=== PATIENT | female | born 2000 | race Caucasian/White ===

== ENCOUNTER 2022-03-08 19:43 | Emergency (ER) | payer SELFPAY ==
[~2022-03-08] VITALS: Ht 152 cm; Wt 63.4 kg
[2022-03-08 21:17] LABS: BILIRUBIN,URINE NEGATIVE (NEGATIVE); CLARITY,URINE CLEAR; COLOR,URINE YELLOW; GLUCOSE, URINE (UA) NEGATIVE (NEGATIVE); KETONES,URINE NEGATIVE (NEGATIVE); LEUKOCYTE ESTERASE ,URINE NEGATIVE (NEGATIVE); NITRITE,URINE NEGATIVE (NEGATIVE); PROTEIN,URINE NEGATIVE (NEGATIVE)
[2022-03-08 21:34] LABS: BACTERIA,URINE NEGATIVE /HPF; SQUAMOUS EPITHELIAL CELL,UR 0-2 /HPF; WBC,URINE 0-2 /HPF
--- NOTE | 2022-03-08 22:10 | ED GU-Female ---
General Chief Complaint: OB < 20 WEEKS Stated Complaint: FRONT/BACK CRAMPS, 7WKS Nursing Triage Note: PATIENT 7 WEEKS PREG. STATES STARTED PROGESTRONE VAGINALLY LAST NIGHT. STATES LOWER PELVIC CRAMPING FOR LAST TWO HOURS. STATES WORSENING IN FREQUENCY AND PAIN. PATIENT STATES SHE IS WORRIED SINCE SHE HAD A MISCARIAGE 5 MO AGO. PATIENT DENIES VAGINAL BLEEDING OR DISCHARGE. Source: patient Exam Limitations: no limitations History of Present Illness Date Seen by Provider: Mar 08, 2022 Time Seen by Provider: 21:09 Initial Comments This 21-year-old 2 para 0 young lady presents to the emergency room in early first trimester with lower back and pelvic cramping as well as pain in the right adnexal region. She is a patient of Dr. GALAVIZ who started progesterone vaginal capsules last night because of prior miscarriage. She reports her present symptoms feel similar to her prior miscarriage. LMP is January 18. She denies any vaginal bleeding or urinary symptoms. She has not yet had an ultrasound for this . Allergies and Home Medications Patient Home Medication List Home Medication List Reviewed: Yes Review of Systems Review of Systems Constitutional: no symptoms reported EENTM: no symptoms reported Respiratory: no symptoms reported Cardiovascular: no symptoms reported Gastrointestinal: no symptoms reported Genitourinary: see HPI : Yes Expected Date of Delivery: Oct 18, 2022 LMP: Dec 19, 2021 Musculoskeletal: no symptoms reported Skin: no symptoms reported Psychiatric/Neurological: No Symptoms Reported Endocrine: No Symptoms Reported Past Hadogux-Oimjjg-Irdmmc Hx Patient Social History Tobacco Use?: No Use of E-Cig and/or Vaping dev: No Substance use?: No Immunizations Up To Date Influenza Vaccine Up-to-Date: No; Not Current First/Initial COVID19 Vaccinat: N/A Second COVID19 Vaccination Xavier: N/A Third COVID19 Vaccination Date: N/A Past Medical History Surgeries: No Respiratory: No Cardiac: No Neurological: No : No Expected Date of Delivery: Oct 18, 2022 Last Menstrual Period: Jan 18, 2022 Genitourinary: No Gastrointestinal: No Musculoskeletal: No Endocrine: No HEENT: No Cancer: No Psychosocial: No Integumentary: No Physical Exam Vital Signs Vital Signs - First Documented 03/08/22 19:51 Temp 36.8 Pulse 114 Resp 20 B/P (MAP) 140/93 (109) Pulse Ox 99 O2 Delivery Room Air Capillary Refill : Less Than 3 Seconds Height, Weight, BMI Height: '" Weight: lbs. oz. kg; 27.00 BMI Method: General Appearance: WD/WN, no apparent distress HEENT: normal ENT inspection Cardiovascular: regular rate, rhythm, no edema, no murmur Respiratory: lungs clear, normal breath sounds, no respiratory distress Gastrointestinal: normal bowel sounds, soft, tenderness (Right adnexa) Extremities: normal inspection, no pedal edema Neurologic/Psychiatric: alert, normal mood/affect, oriented x 3 Skin: normal color, warm/dry Progress/Results/Core Measures Suspected Sepsis SIRS Temperature: Pulse: 114 Respiratory Rate: 20 Blood Pressure 140 /93 Mean: 109 Results/Orders Lab Results My Orders Vital Signs/I&O Capillary Refill : Less Than 3 Seconds Blood Pressure Mean: 109 Progress Note #1: Time: 22:14 Progress Note Phlebotomy has not been yet been successful at blood draw. Ultrasound is presently available in the hospital, so pelvic ultrasound will be obtained. Progress Note #2: Progress Note hCG was normal for gestational age and ultrasound showed a single live intrauterine gestation with no obvious abnormalities. Patient was discharged to outpatient follow-up. See discharge instructions for further discussion. Diagnostic Imaging Diagonstic Imaging: Ultrasound Plain Films/CT/US/NM/MRI: pelvis Comments Single live intrauterine gestation at approximately 7 weeks gestational age. Discussed with plastic technician and [employer] report reviewed. Departure Impression Primary Impression: Pelvic pain affecting Qualified Codes: O26.891 - Other specified related conditions, first trimester; R10.2 - Pelvic and perineal pain Disposition: 01 HOME, SELF-CARE Condition: Stable Departure-Patient Inst. Decision time for Depature: 00:11 Referrals: MAYLIN,LOCAL PHYSICIAN (PCP) Primary Care Physician AIDE GALAVIZ DO (Family) Primary Care Physician Patient Instructions: Stomach Pain in Early Add. Discharge Instructions: Your hormone levels and ultrasound are appropriate and normal for gestational age. heart rate was 148. Drink plenty of clear liquids to stay well-hydrated. You may take Tylenol (acetaminophen) up to 1000 mg every 6 hours as needed for pain and cramping. Benadryl (diphenhydramine) 25 to 50 mg every 6 hours may also be helpful in reducing cramping. Contact Dr. GALAVIZ's office in the morning for further instructions. Return to the ER if you have notably worsening symptoms or if new symptoms such as fever or vaginal bleeding develop. All discharge instructions reviewed with patient and/or family. Voiced understanding. Copy Copies To 1: AIDE GALAVIZ JOSHUA T MD Mar 08, 2022 22:10
[2022-03-08 22:24] LABS: BASOPHILS # (AUTO) 0.1 10^3/uL (0.0-0.1); BASOPHILS % (AUTO) 1 % (0-10); EOSINOPHILS # (AUTO) 0.4 10^3/uL (0.0-0.3); EOSINOPHILS % (AUTO) 3 % (0-10); HEMATOCRIT 39 % (35-52); HEMOGLOBIN 12.5 g/dL (11.5-16.0); LYMPHOCYTES # (AUTO) 2.9 10^3/uL (1.0-4.0); LYMPHOCYTES % (AUTO) 22 % (12-44); MEAN CORPUSCULAR HEMOGLOBIN 28 pg (25-34); MEAN CORPUSCULAR HGB CONC 32 g/dL (32-36); MEAN CORPUSCULAR VOLUME 86 fL (80-99); MEAN PLATELET VOLUME 8.8 fL (9.0-12.2); MONOCYTES % (AUTO) 8 % (0-12); NEUTROPHILS # (AUTO) 8.4 10^3/uL (1.8-7.8); NEUTROPHILS % (AUTO) 66 % (42-75); PLATELET COUNT 355 10^3/uL (130-400); WHITE BLOOD COUNT 12.7 10^3/uL (4.3-11.0)
[2022-03-09 00:19] VITALS: BP 140/93
--- NOTE | 2022-03-09 06:48 | Diagnostic Imaging Report ---
Indication: Right adnexal pain OB ultrasound Transabdominal and endovaginal scanning of the pelvis was performed There is a single living intrauterine . Embryo crown-rump length measures 10 mm corresponding to gestational age of 7 weeks 1 day. heart rate was 149 bpm. Yolk sac is present. Amniotic fluid volume is normal. Placenta location is indeterminate. Adnexa are unremarkable. IMPRESSION: Single living intrauterine with an estimated gestational age of 7 weeks 1 day. I agree with preliminary interpretation. Dictated by: Dictated on workstation # [id number]
== END 2022-03-09 00:22 | disposition home or self-care (01) ==
LOC: ER 19:47
DX: O26.891 Other specified pregnancy related conditions, first trimester (principal); R10.2 Pelvic and perineal pain; Z3A.01 Less than 8 weeks gestation of pregnancy; Z28.310 Unvaccinated for COVID-19
CPT/HCPCS: 36415; 76801; 76817; 81000; 84702; 85025; 99283

== ENCOUNTER 2022-05-04 10:24 | Emergency (ER) | payer OTHER ==
--- NOTE | 2022-05-04 10:33 | ED Dyspnea ---
General Stated Complaint: SOB History of Present Illness Date Seen by Provider: May 04, 2022 Time Seen by Provider: 10:27 Initial Comments 21-year-old female presents with shortness of breath. Patient reports she has a history of asthma. That over the last couple days she seemed to be more short of breath and is had to use her inhaler more. She is not currently wheezing. She ran out of her inhaler this morning. She reports she feels like she is been using it 10 times a day. She has a mild cough. No fevers chills nausea vomiting or other associated symptoms. Allergies and Home Medications Allergies Coded Allergies: No Known Drug Allergies (Unverified , 05/04/22) Patient Home Medication List Home Medication List Reviewed: Yes Review of Systems Review of Systems Constitutional: No chills, No fever Respiratory: cough, short of breath, wheezing Cardiovascular: No chest pain Gastrointestinal: no symptoms reported Genitourinary: no symptoms reported Musculoskeletal: no symptoms reported Skin: no symptoms reported Psychiatric/Neurological: No Symptoms Reported Endocrine: No Symptoms Reported Past Jcthccg-Jvjskf-Uswhyo Hx Immunizations Up To Date First/Initial COVID19 Vaccinat: N/A Second COVID19 Vaccination Xavier: N/A Third COVID19 Vaccination Date: N/A Past Medical History Surgeries: No Respiratory: No Cardiac: No Neurological: No Genitourinary: No Gastrointestinal: No Musculoskeletal: No Endocrine: No HEENT: No Cancer: No Psychosocial: No Integumentary: No Physical Exam Vital Signs Vital Signs - First Documented 05/04/22 10:36 Temp 36.5 Pulse 116 Resp 16 B/P (MAP) 131/76 (94) Pulse Ox 99 O2 Delivery Room Air Capillary Refill : Height, Weight, BMI Height: '" Weight: lbs. oz. kg; 27.00 BMI Method: General Appearance: No Apparent Distress, WD/WN HEENT: TMs Normal, Moist Mucous Membranes Neck: Full Range of Motion, Supple Respiratory: Lungs Clear, Normal Breath Sounds Cardiovascular: No Edema, Normal Peripheral Pulses, Tachycardia Gastrointestinal: Non Tender, Soft Extremity: Normal Capillary Refill, Normal Inspection, Normal Range of Motion Neurologic/Psychiatric: Alert, Oriented x3, No Motor/Sensory Deficits Skin: Normal Color, Warm/Dry Progress/Results/Core Measures Results/Orders Lab Results Laboratory Tests Test 05/04/22 10:39 Range/Units Influenza Type A (RT-PCR) Not Detected Not Detecte Influenza Type B (RT-PCR) Not Detected Not Detecte SARS-CoV-2 RNA (RT-PCR) Not Detected Not Detecte My Orders Orders - BHANU HOLT DO Albuterol/Ipra Inhalation Soln (Duoneb I (05/04/22 10:45) Dexamethasone Injection (Decadron Inje (05/04/22 10:45) Svn Small Volume Nebulizer (05/04/22 10:34) Influenza A And B By Pcr (05/04/22 10:34) Covid 19 Inhouse Test (05/04/22 10:34) Medications Given in ED Current Medications Medications Dose Ordered Sig/Henok Route Start Time Stop Time Status Last Admin Dose Admin Albuterol/ Ipratropium 3 ml ONCE ONCE INH 05/04/22 10:45 05/04/22 10:46 DC 05/04/22 10:39 3 ML Dexamethasone Sodium Phosphate 10 mg ONCE ONCE IM 05/04/22 10:45 05/04/22 10:46 DC 05/04/22 10:39 10 MG Vital Signs/I&O 05/04/22 10:36 Temp 36.5 Pulse 116 Resp 16 B/P (MAP) 131/76 (94) Pulse Ox 99 O2 Delivery Room Air Progress Progress Note : Progress Note Patient's symptoms improved following treatment. Patient's likely mild asthma exacerbation along with probable some early changes that she is 15 weeks . Patient is negative for COVID and influenza. I will prescribe her a Decadron 10 mg that she can take tomorrow along with refill her albuterol. I recommend she follow-up with her primary care provider to discuss inhaled steroids and other management. She is stable and discharged home Departure Impression Primary Impression: Asthma exacerbation Qualified Codes: J45.901 - Unspecified asthma with (acute) exacerbation Disposition: HOME, SELF-CARE Condition: Stable Departure-Patient Inst. Referrals: NO,LOCAL PHYSICIAN (PCP/Family) Primary Care Physician Patient Instructions: Asthma, Adult (DC), Asthma and Add. Discharge Instructions: Please follow-up with your primary care provider for long-term asthma and management. Please take the Decadron tomorrow night that is prescribed. You may use your inhaler every 4-6 hours as needed Scripts Dexamethasone (Dexamethasone) 4 Mg Tablet 10 MG PO ONCE, #3 TAB Prov: BHANU HOLT DO 05/04/22 Albuterol Sulfate (Ventolin Hfa) 90 Mcg Hfa.aer.ad 18 GM INH Q6H PRN for SHORTNESS OF BREATH, #1 EA Prov: BHANU HOLT DO 05/04/22 BHANU HOLT DO May 04, 2022 10:33
[2022-05-04] MEDS ORDERED: RT-ALBUTEROL/IPRATROPIUM 3 ML (DUONEB) VIAL INH ONE (10:45)
[2022-05-04] MEDS ORDERED: ALBU18HF2 INH (11:24)
[2022-05-04] MEDS ORDERED: DEXA4TAB PO (11:24)
[2022-05-04 11:25] VITALS: BP 131/76
== END 2022-05-04 11:27 | disposition home or self-care (01) ==
LOC: EDUNIT# 10:24 → ER FS 10:26
DX: O99.512 Diseases of the respiratory system complicating pregnancy, second trimester (principal); J45.901 Unspecified asthma with (acute) exacerbation; Z20.822 Contact with and (suspected) exposure to COVID-19; Z28.310 Unvaccinated for COVID-19; Z3A.15 15 weeks gestation of pregnancy
CPT/HCPCS: 87636; 94640

== ENCOUNTER 2022-05-06 07:23 | Emergency (ER) | payer OTHER ==
[~2022-05-06] VITALS: Ht 152.4 cm; Wt 63.5 kg
[~2022-05-06 07:23] MED LIST changes: -CEPH500T PO
--- NOTE | 2022-05-06 07:39 | ED General ---
General Stated Complaint: LOWER BACK PAIN PN, CRAMPING History of Present Illness Date Seen by Provider: May 06, 2022 Time Seen by Provider: 07:34 Initial Comments 21 yr F who is a primigravida, and 15 weeks , is here with c/o left sided flank pain which has been ongoing for the past couple of days but increasing in intensity today morning. Pain is 10/10, and is associated with nausea and vomiting. Patient has been taking medication for constipation for the past 3 days and today morning she had 1 episode of diarrhea. Patient states that she has not been drinking enough water over the past few weeks. Denies fever, chills, chest pain, shortness of breath, dysuria, polyuria. Allergies and Home Medications Allergies Coded Allergies: No Known Drug Allergies (Unverified , 05/04/22) Patient Home Medication List Home Medication List Reviewed: Yes Albuterol Sulfate (Ventolin Hfa) 90 Mcg Hfa.aer.ad, 18 GM INH Q6H PRN for SHORTNESS OF BREATH Prescribed by: BHANU HOLT on 05/04/22 112 Dexamethasone (Dexamethasone) 4 Mg Tablet, 10 MG PO ONCE Prescribed by: BHANU HOLT on 05/04/22 1124 Review of Systems Review of Systems Constitutional: no symptoms reported EENTM: no symptoms reported Respiratory: no symptoms reported Cardiovascular: no symptoms reported Gastrointestinal: nausea, vomiting Genitourinary: other : Yes Musculoskeletal: back pain Skin: no symptoms reported Psychiatric/Neurological: No Symptoms Reported Hematologic/Lymphatic: No Symptoms Reported Immunological/Allergic: no symptoms reported Past Oeujsvy-Ctqobz-Rcfgcr Hx Immunizations Up To Date First/Initial COVID19 Vaccinat: N/A Second COVID19 Vaccination Xavier: N/A Third COVID19 Vaccination Date: N/A Past Medical History Surgeries: No Respiratory: No Cardiac: No Neurological: No Genitourinary: No Gastrointestinal: No Musculoskeletal: No Endocrine: No HEENT: No Cancer: No Psychosocial: No Integumentary: No Physical Exam Vital Signs Vital Signs - First Documented 05/06/22 07:28 Temp 36.5 Pulse 117 Resp 20 B/P (MAP) 108/88 (95) O2 Delivery Room Air Capillary Refill : Height, Weight, BMI Height: '" Weight: lbs. oz. kg; 27.00 BMI Method: General Appearance: Mild Distress HEENT: PERRL/EOMI Neck: Full Range of Motion, Supple Respiratory: Chest Non Tender, Lungs Clear, Normal Breath Sounds Cardiovascular: Regular Rate, Rhythm Gastrointestinal: Normal Bowel Sounds, Non Tender, Soft Back: Normal Inspection, No Vertebral Tenderness, CVA Tenderness (L) Extremity: Normal Range of Motion Neurologic/Psychiatric: Alert, Oriented x3 Skin: Normal Color Progress/Results/Core Measures Suspected Sepsis SIRS Temperature: Pulse: Respiratory Rate: Laboratory Tests 05/06/22 07:51: White Blood Count 12.6H Blood Pressure / Mean: Laboratory Tests 05/06/22 07:51: Creatinine 0.41L, Platelet Count 327, Total Bilirubin 0.4 Results/Orders Lab Results Laboratory Tests Test 05/06/22 07:28 05/06/22 07:51 Range/Units Urine Color YELLOW Urine Clarity CLOUDY Urine pH 6.5 5-9 Urine Specific [place] 1.020 1.016-1.022 Urine Protein NEGATIVE NEGATIVE Urine Glucose (UA) NEGATIVE NEGATIVE Urine Ketones NEGATIVE NEGATIVE Urine Nitrite NEGATIVE NEGATIVE Urine Bilirubin NEGATIVE NEGATIVE Urine Urobilinogen 0.2 < = 1.0 MG/DL Urine Leukocyte Esterase TRACE H NEGATIVE Urine RBC (Auto) 3+ H NEGATIVE Urine RBC TNTC H /HPF Urine WBC NONE /HPF Urine Squamous Epithelial Cells 5-10 /HPF Urine Crystals NONE /LPF Urine Bacteria NEGATIVE /HPF Urine Casts NONE /LPF Urine Mucus NEGATIVE /LPF Urine Culture Indicated YES White Blood Count 12.6 H 4.3-11.0 10^3/uL Red Blood Count 4.43 3.80-5.11 10^6/uL Hemoglobin 12.8 11.5-16.0 g/dL Hematocrit 38 35-52 % Mean Corpuscular Volume 85 80-99 fL Mean Corpuscular Hemoglobin 29 25-34 pg Mean Corpuscular Hemoglobin Concent 34 32-36 g/dL Red Cell Distribution Width 13.9 10.0-14.5 % Platelet Count 327 130-400 10^3/uL Mean Platelet Volume 9.2 9.0-12.2 fL Immature Granulocyte % (Auto) 1 % Neutrophils (%) (Auto) 88 H 42-75 % Lymphocytes (%) (Auto) 10 L 12-44 % Monocytes (%) (Auto) 2 0-12 % Eosinophils (%) (Auto) 0 0-10 % Basophils (%) (Auto) 0 0-10 % Neutrophils # (Auto) 11.1 H 1.8-7.8 10^3/uL Lymphocytes # (Auto) 1.2 1.0-4.0 10^3/uL Monocytes # (Auto) 0.2 0.0-1.0 10^3/uL Eosinophils # (Auto) 0.0 0.0-0.3 10^3/uL Basophils # (Auto) 0.0 0.0-0.1 10^3/uL Immature Granulocyte # (Auto) 0.1 0.0-0.1 10^3/uL Sodium Level 133 L 135-145 MMOL/L Potassium Level 4.3 3.6-5.0 MMOL/L Chloride Level 101 98-107 MMOL/L Carbon Dioxide Level 17 L 21-32 MMOL/L Anion Gap 15 H 5-14 MMOL/L Blood Urea Nitrogen 5 L 7-18 MG/DL Creatinine 0.41 L 0.60-1.30 MG/DL Estimat Glomerular Filtration Rate 143 BUN/Creatinine Ratio 12 Glucose Level 116 H 70-105 MG/DL Calcium Level 9.3 8.5-10.1 MG/DL Corrected Calcium 9.1 8.5-10.1 MG/DL Magnesium Level 2.1 1.6-2.4 MG/DL Total Bilirubin 0.4 0.1-1.0 MG/DL Aspartate Amino Transf (AST/SGOT) 20 5-34 U/L Alanine Aminotransferase (ALT/SGPT) 41 0-55 U/L Alkaline Phosphatase 76 40-136 U/L Total Protein 7.5 6.4-8.2 GM/DL Albumin 4.2 3.2-4.5 GM/DL Human Chorionic Gonadotropin, Quant 37387 H <5 MIU/ML My Orders Orders - EMILY SR MD Cbc With Automated Diff (05/06/22 07:39) Comprehensive Metabolic Panel (05/06/22 07:39) Hcg,Quantitative (05/06/22 07:39) Magnesium (05/06/22 07:39) Ua Culture If Indicated (05/06/22 07:39) Urine Culture (05/06/22 07:28) Manual Differential (05/06/22 07:51) Ed Iv/Invasive Line Start (05/06/22 08:04) Ns Iv 1000 Ml (Sodium Chloride 0.9%) (05/06/22 08:15) Morphine Injection (Morphine Injection (05/06/22 08:04) Ondansetron Injection (Zofran Injectio (05/06/22 08:15) Ns Iv 1000 Ml (Sodium Chloride 0.9%) (05/06/22 08:12) Morphine Injection (Morphine Injection (05/06/22 08:11) Ondansetron Injection (Zofran Injectio (05/06/22 08:12) Medications Given in ED Current Medications Medications Dose Ordered Sig/Henok Route Start Time Stop Time Status Last Admin Dose Admin Ondansetron HCl 4 mg ONCE ONCE IVP 05/06/22 08:15 05/06/22 08:20 DC 05/06/22 08:14 4 MG Vital Signs/I&O 05/06/22 07:28 Temp 36.5 Pulse 117 Resp 20 B/P (MAP) 108/88 (95) O2 Delivery Room Air Capillary Refill : Progress Note : Progress Note 1. LEFT KIDNEY STONE/ POSSIBLE ASYMPTOMATIC UTI IN : -Ultrasound is not available today at [facility]. Will transfer to [place] to have an outpatient ultrasound to rule out kidney stone obstruction and/or hydronephrosis -Patient states she is unable to swallow pills and refuses oral medication that she has to swallow. Morphine 1 mg IV/Zofran 4 mg IV/NS IVF bolus given stat in ER -Patient likely has a kidney stone based on exam and labs. Labs show a positive leukocyte esterase and RBCs only in the UA which can indicate inflammation due to stones. WBC is borderline elevated at 12 but this is likely due to inflammation as well since patient is afebrile. -In case patient has a developing asymptomatic UTI in , will give a prescription for Keflex twice daily for 5 days. -Advised Tylenol liquid as needed for pain -Follow-up with OB in the next 3 to 5 days, and also follow-up with urology within the next 3 to 5 days. Call to schedule appointment. -Advised adequate hydration -The patient was seen in the ED, and treated appropriately to presentation at a specific point in time. Patient is informed that there is a possibility that disease and illness can evolve and change in acuity rapidly or slowly after patient is discharged from the ER. Precautionary advice given to the patient for immediate return to ER if symptoms worsen or do not resolve, and to seek emergency care sooner rather than later. Pt also advised on the importance of PCP follow up and compliance with management and follow up plan with PCP and/or specialist, as this is part of the management plan. Pt verbally expressed understanding. Diagnostic Imaging Diagonstic Imaging: Ultrasound Plain Films/CT/US/NM/MRI: abdomen, other Comments Pt to go to [place] for out-patient u/s directly from ER. Departure Impression Primary Impression: Left renal stone Additional Impression: Asymptomatic urinary finding Disposition: S[facility]-TRM HOSP Condition: Stable Departure-Patient Inst. Referrals: NO,LOCAL PHYSICIAN (PCP/Family) Primary Care Physician Patient Instructions: Kidney Stone Diet, Flank Pain ED, Renal Colic (DC), Kidney Stones (DC) Add. Discharge Instructions: - GO directly to [facility] for ultrasound - Keflex twice daily for 5 days. -Advised Tylenol liquid as needed for pain -Follow-up with OB in the next 3 to 5 days, and also follow-up with urology within the next 3 to 5 days. Call to schedule appointment. -Advised adequate hydration Scripts Cephalexin (Cephalexin) 500 Mg Tablet 500 MG PO BID for 5 Days, #10 TAB Prov: EMILY SR MD 05/06/22 EMILY SR MD May 06, 2022 07:38
[2022-05-06 07:43] LABS: BILIRUBIN,URINE NEGATIVE (NEGATIVE); COLOR,URINE YELLOW; GLUCOSE, URINE (UA) NEGATIVE (NEGATIVE); KETONES,URINE NEGATIVE (NEGATIVE); LEUKOCYTE ESTERASE ,URINE TRACE (NEGATIVE); NITRITE,URINE NEGATIVE (NEGATIVE); PH,URINE 6.5 (5-9); PROTEIN,URINE NEGATIVE (NEGATIVE)
[2022-05-06 07:45] LABS: BACTERIA,URINE NEGATIVE /HPF; CLARITY,URINE CLOUDY; RBC,URINE TNTC /HPF
[2022-05-06 07:53] LABS: BASOPHILS % (AUTO) 0 % (0-10); EOSINOPHILS % (AUTO) 0 % (0-10); HEMATOCRIT 38 % (35-52); HEMOGLOBIN 12.8 g/dL (11.5-16.0); LYMPHOCYTES # (AUTO) 1.2 10^3/uL (1.0-4.0); LYMPHOCYTES % (AUTO) 10 % (12-44); MEAN CORPUSCULAR HEMOGLOBIN 29 pg (25-34); MEAN CORPUSCULAR HGB CONC 34 g/dL (32-36); MEAN CORPUSCULAR VOLUME 85 fL (80-99); MEAN PLATELET VOLUME 9.2 fL (9.0-12.2); MONOCYTES # (AUTO) 0.2 10^3/uL (0.0-1.0); MONOCYTES % (AUTO) 2 % (0-12); NEUTROPHILS # (AUTO) 11.1 10^3/uL (1.8-7.8); NEUTROPHILS % (AUTO) 88 % (42-75); PLATELET COUNT 327 10^3/uL (130-400); WHITE BLOOD COUNT 12.6 10^3/uL (4.3-11.0)
[2022-05-06] MEDS ORDERED: morphine INJ 10 MG/ML 1ML (SYR OR VIAL) IVP STA ×3 (08:04→13:19)
[2022-05-06] MEDS ORDERED: morphine INJ 10 MG/ML 1ML (SYR OR VIAL) ONE ×2 (08:11→12:43)
[2022-05-06] MEDS ORDERED: NS IV 1000 ML 1,000 ML ONE (08:12)
[2022-05-06] MEDS ORDERED: ONDANSETRON 4 MG/2 ML (SDV) Z0FRAN ONE (08:12)
[2022-05-06] MEDS ORDERED: NS IV 1000 ML 1,000 ML IV SCH (08:15)
[2022-05-06] MEDS ORDERED: ONDANSETRON 4 MG/2 ML (SDV) Z0FRAN IVP ONE ×2 (08:15→13:00)
[2022-05-06 08:21] LABS: BILIRUBIN,TOTAL 0.4 MG/DL (0.1-1.0); CALCIUM 9.3 MG/DL (8.5-10.1); CREATININE SERUM 0.41 MG/DL (0.60-1.30); MAGNESIUM 2.1 MG/DL (1.6-2.4); POTASSIUM 4.3 MMOL/L (3.6-5.0)
[2022-05-06 08:22] LABS: ALBUMIN 4.2 GM/DL (3.2-4.5); TOTAL PROTEIN 7.5 GM/DL (6.4-8.2)
[2022-05-06] MEDS ORDERED: CEPH500T PO (09:17)
[2022-05-06 10:35] LABS: LYMPHOCYTES % (MANUAL) 9 %; MONOCYTES % (MANUAL) 2 %; NEUTROPHILS % (MANUAL) 89 %
[2022-05-06] MEDS ORDERED: fentaNYL INJ 100 MCG/2 ML AMP IVP ONE (12:45)
--- NOTE | 2022-05-06 14:22 | Diagnostic Imaging Report ---
INDICATION: Abdominal pain. Hematuria. FINDINGS: No radiopaque renal calculi are identified. No suspicious calcific opacities along the expected course of either ureter. Gravid uterus is noted. The bowel gas pattern is unremarkable. No abnormal fecal loading. IMPRESSION: No radiopaque urinary tract calculus disease can be identified. Dictated by: Dictated on workstation # [id number]
[2022-05-06] MEDS ORDERED: HYDROmorphone 2 MG/ML VIAL (DILAUDID) IVP ONE (15:00)
[2022-05-06] MEDS ORDERED: RT-ALBUTEROL HFA 8.5 GM INHALER IH STA (16:38)
[2022-05-06 16:55] VITALS: BP 105/89
== END 2022-05-06 14:20 | disposition short-term general hospital (02) ==
LOC: EDUNIT# 07:23 → ER FS 07:25 → ER 14:20
DX: O26.832 Pregnancy related renal disease, second trimester (principal); N20.0 Calculus of kidney; R82.90 Unspecified abnormal findings in urine; Z28.310 Unvaccinated for COVID-19; Z3A.15 15 weeks gestation of pregnancy
CPT/HCPCS: 36415; 74018; 80053; 81000; 83735; 84702; 85007; 85025; 85027; 87088; 99282

== ENCOUNTER → 2022-05-06 | Outpatient (CLI) | payer OTHER ==
[~2022-05-06] MED LIST: ALBU18HF2 INH; CEPH500T PO; DEXA4TAB PO
--- NOTE | 2022-05-06 13:17 | Diagnostic Imaging Report ---
PROCEDURE: US Renal Bilateral. TECHNIQUE: Multiple real-time grayscale images were obtained over the kidneys in various projections bilaterally. INDICATION: Left-sided flank pain. 15 weeks . FINDINGS: The right kidney measures 10.1 symmetric in length and left measures 11.67 m in length. The right kidney demonstrates moderate dilation of the renal pelvis and mild prominence of the renal calyces. The left kidney demonstrates a very slight prominence of left renal pelvis with no findings of calyceal dilatation. There are no findings of a renal stone or intrarenal mass. There is no perinephric fluid. The maternal bladder is decompressed. IMPRESSION: 1. Moderate right and mild left prominence of the renal pelvis likely related to current . There is no significant calyceal dilatation to suggest hydronephrosis. There is no intrarenal calculus evident. Urinary bladder is nondistended. Dictated by: Dictated on workstation # [id number]
--- NOTE | 2022-05-06 13:35 | Diagnostic Imaging Report ---
Indication: Maternal flank pain. FINDINGS: There is a Blair gestation currently in breech presentation. The placenta is posterior. Amniotic fluid volume appeared unremarkable. heart rate 139 bpm. Nondilated cervix measured 4 cm. There is no abruption or previa. IMPRESSION: Blair viable IUP measures 15 weeks 5 days with no pathological finding. Dictated by: Dictated on workstation # [id number]
== END ==
LOC: RAD 10:20
PROVIDERS: ATTEND Specialist
DX: Z34.92 Encounter for supervision of normal pregnancy, unspecified, second trimester (principal); N28.89 Other specified disorders of kidney and ureter; Z3A.15 15 weeks gestation of pregnancy
CPT/HCPCS: 76770; 76815

== ENCOUNTER → 2022-06-14 | Outpatient (CLI) | payer OTHER ==
[~2022-06-14] MED LIST changes: +CEPH500T PO
--- NOTE | 2022-06-14 16:42 | Diagnostic Imaging Report ---
INDICATION: TECHNIQUE: Multiple real-time grayscale images were obtained over the gravid uterus. COMPARISON: None FINDINGS: Biometrical measurements are as follows: Biparietal 5.23 cm, age 22 weeks 0 days. Head circumference 19.18 cm, age 21 weeks 4 days. Abdominal circumference 16.40 cm, age 21 weeks 4 days. Femur length 3.58 cm, age 21 weeks 3 days. Sonographic estimate age: 21 weeks 5 days. Sonographic estimated date of delivery: 10/20/2022. Estimated Weight: 423 gm (+/- 62 gm). LMP percentile: 68%. heart rate: 146 beats per minute. number: 1 of 1. A single live intrauterine in cephalic presentation. The largest vertical amniotic fluid pocket measures 10.1 cm. Placenta is posterior and within normal limits. heart rate is 146 BPM. The cervix is normal with a length of 4.7 cm. No placenta previa. The kidneys, stomach, bladder, four-chamber heart, cord insertion, bladder, spine, lateral ventricle, nasal profile, nose/lips, diaphragm are visualized and normal. The CSP and outflow tracts are not well seen due to positioning. Male gender. IMPRESSION: Single live intrauterine measuring at 21 weeks and 5 days which is within normal limits with gestational age. No abnormality identified. The outflow tracts and BUSINESS INSTRUCTOR are not well seen due to positioning. Dictated by: Dictated on workstation # [id number]
== END ==
LOC: RAD 09:09
PROVIDERS: ATTEND Nurse Practitioner Women's Health
DX: Z34.02 Encounter for supervision of normal first pregnancy, second trimester (principal); Z3A.21 21 weeks gestation of pregnancy
CPT/HCPCS: 76805

== ENCOUNTER 2022-10-24 06:00 | Inpatient (IN) | payer OTHER, MEDICAID ==
[2022-10-24] VITALS (59 sets, daily range): BP systolic 101–166; BP diastolic 54–99
[~2022-10-24] VITALS: Ht 152.4 cm; Wt 76.4 kg
[2022-10-24] MEDS ORDERED: LIDOCAINE/EPI 2% 1:200,00 (XYLOCAINE) 20 ML VIAL INJ PRN ×3 (06:15→08:30)
[2022-10-24 06:51] LABS: BILIRUBIN,URINE NEGATIVE (NEGATIVE); CLARITY,URINE SL CLOUDY; COLOR,URINE YELLOW; GLUCOSE, URINE (UA) NEGATIVE (NEGATIVE); KETONES,URINE NEGATIVE (NEGATIVE); LEUKOCYTE ESTERASE ,URINE TRACE (NEGATIVE); NITRITE,URINE NEGATIVE (NEGATIVE); PROTEIN,URINE NEGATIVE (NEGATIVE)
[2022-10-24 06:52] LABS: BASOPHILS % (AUTO) 0 % (0-10); EOSINOPHILS # (AUTO) 0.6 10^3/uL (0.0-0.3); EOSINOPHILS % (AUTO) 5 % (0-10); HEMATOCRIT 33 % (35-52); HEMOGLOBIN 10.6 g/dL (11.5-16.0); LYMPHOCYTES % (AUTO) 18 % (12-44); MEAN CORPUSCULAR HEMOGLOBIN 27 pg (25-34); MEAN CORPUSCULAR HGB CONC 32 g/dL (32-36); MEAN CORPUSCULAR VOLUME 84 fL (80-99); MEAN PLATELET VOLUME 9.8 fL (9.0-12.2); MONOCYTES # (AUTO) 0.9 10^3/uL (0.0-1.0); MONOCYTES % (AUTO) 8 % (0-12); NEUTROPHILS # (AUTO) 7.5 10^3/uL (1.8-7.8); NEUTROPHILS % (AUTO) 68 % (42-75); PLATELET COUNT 303 10^3/uL (130-400); WHITE BLOOD COUNT 11.1 10^3/uL (4.3-11.0)
[2022-10-24 06:59] LABS: BACTERIA,URINE FEW /HPF; WBC,URINE RARE /HPF
[2022-10-24] MEDS: D5 LR IV SOLUTION 1,000 ML IV SCH ×3 (07:02→19:50)
[2022-10-24] MEDS ORDERED: MONT-47 PO (07:33)
--- NOTE | 2022-10-24 07:33 | History & Physical-OB ---
OB - Chief Complaint & HPI Date/Time Date of Admission: Date of Admission: Oct 24, 2022 at 06:00 Date seen by a Provider: Oct 24, 2022 Time Seen by a Provider: 07:30 Chief Complaint/History OB-Reason for Admission/Chief: Induction of Labor Hx : 2 Hx Para: 0 Expected Date of Delivery: Oct 25, 2022 Gestational Age in Weeks: 39 Gestational Age in Days: 6 Indication for induction: maternal discomfort Admission Nurse Assessment Rev: Yes History of Labs O pos Antibody neg RI RPR NR HBsAg NR HIV NR GC neg GBS neg Allergies and Home Medications Allergies Coded Allergies: No Known Drug Allergies (Unverified , 05/04/22) Patient Home Medication List Home Medication List Reviewed: Yes Albuterol Sulfate (Ventolin Hfa) 90 Mcg Hfa.aer.ad, 18 GM INH Q6H PRN for SHORTNESS OF BREATH Prescribed by: BHANU HOLT on 05/04/22 1124 Cephalexin (Cephalexin) 500 Mg Tablet, 500 MG PO BID Prescribed by: EMILY SR MD on 05/06/22 0917 Dexamethasone (Dexamethasone) 4 Mg Tablet, 10 MG PO ONCE Prescribed by: BHANU HOLT on 05/04/22 1124 OB - History Hx of Present Care: Yes Ultrasounds: Normal mid trimester US Obstetrical Complications: None Medical Complications: None Patient Past Medical History nc Immunizations First/Initial COVID19 Vaccine: N/A Second COVID19 Vaccination: N/A Third COVID19 Vaccination Date: N/A OB - Admission Exam Physical Exam HEENT: NCAT Heart: Rhythm Normal Lungs: Clear Abdomen: Gravid Extremities: Normal Reflexes: Normal Cervical Dilatation: 2cm Effacement: 75% Station: -1 Membranes: Intact Heart Rate: 130's Accelerations: Accelerations Present Decelerations: No Decelerations Short Term Variability: Present Psychological Stress Evaluator Variability: Average (6-25) Contractions on Admission: 6-10 Minutes Apart Intensity: Mild Labs Laboratory Tests Test 10/24/22 06:20 Range/Units White Blood Count 11.1 H 4.3-11.0 10^3/uL Red Blood Count 3.95 3.80-5.11 10^6/uL Hemoglobin 10.6 L 11.5-16.0 g/dL Hematocrit 33 L 35-52 % Mean Corpuscular Volume 84 80-99 fL Mean Corpuscular Hemoglobin 27 25-34 pg Mean Corpuscular Hemoglobin Concent 32 32-36 g/dL Red Cell Distribution Width 13.5 10.0-14.5 % Platelet Count 303 130-400 10^3/uL Mean Platelet Volume 9.8 9.0-12.2 fL Immature Granulocyte % (Auto) 1 % Neutrophils (%) (Auto) 68 42-75 % Lymphocytes (%) (Auto) 18 12-44 % Monocytes (%) (Auto) 8 0-12 % Eosinophils (%) (Auto) 5 0-10 % Basophils (%) (Auto) 0 0-10 % Neutrophils # (Auto) 7.5 1.8-7.8 10^3/uL Lymphocytes # (Auto) 2.0 1.0-4.0 10^3/uL Monocytes # (Auto) 0.9 0.0-1.0 10^3/uL Eosinophils # (Auto) 0.6 H 0.0-0.3 10^3/uL Basophils # (Auto) 0.0 0.0-0.1 10^3/uL Immature Granulocyte # (Auto) 0.1 0.0-0.1 10^3/uL Urine Color YELLOW Urine Clarity SL CLOUDY Urine pH 6.0 5-9 Urine Specific [place] 1.010 L 1.016-1.022 Urine Protein NEGATIVE NEGATIVE Urine Glucose (UA) NEGATIVE NEGATIVE Urine Ketones NEGATIVE NEGATIVE Urine Nitrite NEGATIVE NEGATIVE Urine Bilirubin NEGATIVE NEGATIVE Urine Urobilinogen 0.2 < = 1.0 MG/DL Urine Leukocyte Esterase TRACE H NEGATIVE Urine RBC (Auto) NEGATIVE NEGATIVE Urine RBC NONE /HPF Urine WBC RARE /HPF Urine Squamous Epithelial Cells 5-10 /HPF Urine Crystals NONE /LPF Urine Bacteria FEW H /HPF Urine Casts NONE /LPF Urine Mucus NEGATIVE /LPF Urine Culture Indicated NO OB - Assessment/Plan/Diagnosis Assessment Assessment: induction of labor Admission Dx 22 yo @ 39 weeks IOL GBS neg Admission Status: Inpatient Order (span 2 midnights) Reason for Inpatient Admission: IOL at 39 weeks Plan Plan: Induction Induction Method: AIDE ATKINS DO Oct 24, 2022 07:33
[2022-10-24] MEDS ORDERED: OXYTOCIN PRE-MIX DRIP 500 ML IV SCH (08:30)
[2022-10-24] MEDS ORDERED: fentaNYL 2 mcg/ml BUPIVA 0.125 100 ML ONE (11:17)
[2022-10-24] MEDS ORDERED: fentaNYL INJ 100 MCG/2 ML AMP ONE ×3 (11:22→21:59)
[2022-10-24] MEDS ORDERED: BUPIVACAINE 0.25% 10 ML (SENSORCAINE) VIAL ONE (11:22)
[2022-10-24] MEDS ORDERED: CATHETER FLUSH 10 ML SYR IV PRN (12:15)
[2022-10-24] MEDS ORDERED: fentaNYL 2 mcg/ml BUPIVA 0.125 100 ML EPI SCH (12:15)
[2022-10-24] MEDS ORDERED: LACTATED RINGERS 1,000 ML IV ONE (12:15)
[2022-10-24] MEDS ORDERED: NALOXONE 0.4 MG/ML 1 ML (NARCAN) VIAL IV PRN ×2 (12:15→20:45)
[2022-10-24] MEDS ORDERED: ONDANSETRON 4 MG/2 ML (SDV) Z0FRAN IVP PRN (20:45)
[2022-10-24] MEDS ORDERED: TETANUS,DIPTH,PERTUSS P/F (BOOSTRIX) 0.5 ML VIAL IM SCH (20:45)
[2022-10-24] MEDS ORDERED: KETOROLAC 30 MG/ML VIAL IV SCH (20:45)
[2022-10-24] MEDS ORDERED: MEASLES,MUMPS,RUBELLA 1 EA INJ SC SCH (20:45)
--- NOTE | 2022-10-24 20:50 | Progress Note ---
Standard Progress Note Progress Notes/Assess & Plan Date Seen by a Provider: Oct 24, 2022 Time Seen by a Provider: 20:35 Progress/Assessment & Plan Came in for further assessment on patient. My last evaluation was at 1400 where patient was found to be 3-4 cm. She has had a few variable decels but nothing reoccuring. Slow rise in temp noted but afebrile. She has been titrated to a max dose of 14 mu pitocin and has maintained an adequate contraction pattern through the past 6 hours. However on reassessment at this time no cervical change was made. Patient counciled about arrest of dilatation and potential causes. We discussed ongoing labor vs proceeding with delivery. Risk of both reviewed, patient agreed that would be the best approach to continue with at this point. All of her questions and family questions were answered to their satisfaction and OR crew and anesthesia was notified to present to procedure. AIDE GALAVIZ DO Oct 24, 2022 20:50
--- NOTE | 2022-10-24 20:51 | Discharge Inst-Women's Service ---
Discharge Inst-Women's Serv Depart Medication/Instructions New, Converted or Re-Newed RX: Transmitted to Pharmacy Final Diagnosis POD 2 PLTCS Problems Reviewed?: Yes Consults/Follow Up Additional Follow Up: Yes Orders/Referrals Dr. Cervantes in 7-10 days and in 6 weeks Activity Activity: Activity as Tolerated Driving Instructions: No Driving for 1 Week NO SMOKING: NO SMOKING Nothing Inside Vagina: No Douching, No [place], No Tampons Diet Discharge Diet: No Restrictions Symptoms to Report to : Bleeding Excessive, Pain Increased, Fever Over 101 Degrees F, Vaginal Bleeding Increase, Questions/Concerns For Any Problems or Questions: Contact Your Physician Skin/Wound Care Infection Signs and Symptoms: Increased Redness, Foul Odor of Wound, Increased Drainage, Skin Itchy or Has a Rash, Increased Swelling, Temperature Above 101 F Operative Area Clean and Dry: Keep Incision Clean/Dry Stitches/[place]/Dermabond: Dermabond, Care of Stitches Bathing Instructions: AIDE Dale DO Oct 24, 2022 20:51
[2022-10-24] MEDS ORDERED: FERR-74 PO (20:53)
[2022-10-24] MEDS ORDERED: CITRIC ACID/SOB CIT (BICITRA) 30 ML UDC ONE (20:53)
[2022-10-24] MEDS ORDERED: ACHD5005 PO (20:53)
[2022-10-24] MEDS ORDERED: PREN1TAB19 PO (20:53)
[2022-10-24] MEDS ORDERED: FAMOTIDINE 20MG/2ML IV (PEPCID) ONE (20:53)
[2022-10-24] MEDS ORDERED: METOCLOPRAMIDE INJ 10 MG/2 ML (REGLAN) ONE (20:53)
[2022-10-24] MEDS ORDERED: DOCU100C37 PO (20:53)
[2022-10-24] MEDS ORDERED: IBUP-844 PO (20:53)
[2022-10-24] MEDS ORDERED: FAMOTIDINE 20MG/2ML IV (PEPCID) IV ONE (21:00)
[2022-10-24] MEDS ORDERED: LACTATED RINGERS 1,000 ML IV PRN ×2 (21:00)
[2022-10-24] MEDS ORDERED: CITRIC ACID/SOB CIT (BICITRA) 30 ML UDC PO ONE (21:00)
[2022-10-24] MEDS ORDERED: METOCLOPRAMIDE INJ 10 MG/2 ML (REGLAN) IV ONE (21:00)
[2022-10-24] MEDS ORDERED: LIDOCAINE PF 2% 5 ML (XYLOCAINE) VIAL ONE (21:08)
[2022-10-24] MEDS ORDERED: NS (IVPB) 50 ML ONE (21:10)
[2022-10-24] MEDS ORDERED: ceFAZolin INJECTION 2,000 MG ONE (21:10)
[2022-10-24] MEDS ORDERED: ceFAZolin INJECTION 2,000 MG in NS (IVPB) 50 ML IV ONE (21:15)
[2022-10-24] MEDS ORDERED: KETAMINE 50 MG/5 ML SYRINGE ONE (21:42)
[2022-10-24] MEDS ORDERED: OXYTOCIN PRE-MIX DRIP 500 ML IV ONE (21:57)
[2022-10-24] MEDS ORDERED: ONDANSETRON 4 MG/2 ML (SDV) Z0FRAN ONE (21:57)
[2022-10-24] MEDS ORDERED: BUPIVACAINE 0.5% 30 ML (SENSORCAINE) VIAL ONE (21:58)
[2022-10-24] MEDS: OXYTOCIN PRE-MIX DRIP 500 ML IV SCH ×2 (22:00→23:46)
[2022-10-24] MEDS: CATHETER FLUSH 10 ML SYR IV SCH (22:10)
[2022-10-24] MEDS ORDERED: KETOROLAC 30 MG/ML VIAL ONE (22:13)
[2022-10-24] MEDS: KETOROLAC 30 MG/ML VIAL IV SCH (22:16)
[2022-10-24] MEDS: DOCUSATE SODIUM 100 MG (COLACE) CAP PO SCH (23:48)
[2022-10-25 00:07] VITALS: BP 132/70
[2022-10-25] MEDS: HYDROcodone/APAP 5 MG/325 MG (LORTAB) TAB PO PRN ×4 (00:46→20:45)
--- NOTE | 2022-10-25 01:11 | OPERATIVE REPORT ---
DATE OF SERVICE: 10/24/2022 PREOPERATIVE DIAGNOSES: 1. A 22-year-old at 39 weeks and 6 days' gestation. 2. Arrest of dilation. POSTOPERATIVE DIAGNOSES: 1. A 22-year-old at 39 weeks and 6 days' gestation. 2. Arrest of dilation. PROCEDURE: Primary low transverse section. SURGEON: Eren Galaviz DO ANESTHESIA: Epidural, which was bolused. ESTIMATED BLOOD LOSS: 600 mL. URINE OUTPUT: 400 mL clear at the end of the procedure. FLUIDS: 500 mL lactated Ringer solution. FINDINGS: A live male weighing 8 pounds 10 ounces, Apgars 8 and 9. Grossly normal appearing uterus, bilateral fallopian tubes and ovaries. SPECIMEN SENT: Placenta. INDICATIONS FOR PROCEDURE: This patient was admitted for induction of labor at 39 weeks. She was favorable on induction. Please see my preoperative note for complete details pertaining to the patient's labor progression, indications for . The patient was then taken to the operating room. OPERATIVE DESCRIPTION IN DETAIL Once in the operating room, epidural analgesia was bolused and found to be adequate. She was placed in supine position with a leftward tilt, prepped and draped in normal sterile fashion where a timeout was performed. Anesthesia was tested. I then made a Pfannenstiel skin incision with a knife and carried down to fascia using Bovie cautery. The fascial incision extended laterally using Bovie cautery. Superior aspect of fascial incision was then grasped with Justin clamps, tented up and dissected off the underlying rectus muscles. The inferior aspect of fascial incision was then grasped with Justin clamps, tented up and dissected off the underlying rectus muscles. Rectus muscles were then dissected down the midline sharply, which exposed the peritoneum, which entered bluntly using blunt traction. Thomas ring retractor was placed in the peritoneal incision, which offers excellent lateral sidewall retraction. I identified lower uterine segment was found to be thinned out. I make a low transverse incision to the vesicouterine peritoneum and bluntly dissected this off the lower uterine segment, creating a bladder flap. I then proceeded my myotomy until membranes were visualized, at which point I extended incision laterally and superiorly using bandage scissors. Amniotomy was performed, clear fluid was noted and the infant was found in vertex presentation. With gentle fundal pressure, the 's head elevated up to the incision where delivered through the incision, the nares and oropharynx were bulb suctioned. Anterior and posterior shoulders were delivered. The was brought to the operative field where cord was doubly clamped and cut and was handed off to waiting nurses in attendance. Cord blood was collected. Three-vessel cord intact placenta delivered spontaneously thereafter. IV Pitocin was initiated to facilitate uterine traction. Uterine fundus confirmed by manual massage. The uterus was exteriorized and cleared of all endometrial clots and debris. I then proceeded with closing the uterine incision using 0 Vicryl suture in a running locked fashion. Second layer of imbricating 0 Monocryl was placed. Excellent hemostasis was noted after doing this. I then placed the uterus back in the pelvis and copiously irrigated the pelvis using normal saline. Once again, there was no active bleeding noted from any of my dissection planes. I placed Interceed antiadhesive over my low transverse incision. I removed the Thomas ring retractor and then proceeded to close the peritoneum using 3-0 Vicryl suture in a running fashion. Rectus muscles were reapproximated using 3-0 Vicryl suture at the fascia. The fascia was reapproximated using 0 Vicryl suture in a running fashion. Subcutaneous tissue was reapproximated using 3-0 plain interrupted subcutaneous stitch and skin reapproximated using 4-0 Monocryl in a running subcuticular. Dermabond was applied to incision, sterile dressing with adhesive white tape. The patient tolerated the procedure well and sent to recovery area in stable condition. Lap and sponge counts were correct at the end of the procedure. Instrument counts correct as well. Two grams of Ancef given preoperatively for infection prophylaxis. Job ID: [id number] DocumentID: [id number] Dictated Date: 10/24/2022 22:21:50 Estate Conservator Date: 10/25/2022 01:09:00 Dictated By: EREN GALAVIZ DO
[2022-10-25] MEDS: KETOROLAC 30 MG/ML VIAL IV SCH ×3 (03:46→16:16)
[2022-10-25] MEDS: CATHETER FLUSH 10 ML SYR IV SCH ×6 (03:50→22:00)
[2022-10-25 03:53] VITALS: BP 109/55
[2022-10-25 06:49] LABS: BASOPHILS % (AUTO) 0 % (0-10); EOSINOPHILS % (AUTO) 0 % (0-10); HEMATOCRIT 29 % (35-52); HEMOGLOBIN 8.9 g/dL (11.5-16.0); LYMPHOCYTES # (AUTO) 1.2 10^3/uL (1.0-4.0); LYMPHOCYTES % (AUTO) 6 % (12-44); MEAN CORPUSCULAR HEMOGLOBIN 27 pg (25-34); MEAN CORPUSCULAR HGB CONC 31 g/dL (32-36); MEAN CORPUSCULAR VOLUME 85 fL (80-99); MEAN PLATELET VOLUME 9.7 fL (9.0-12.2); MONOCYTES # (AUTO) 1.3 10^3/uL (0.0-1.0); MONOCYTES % (AUTO) 7 % (0-12); NEUTROPHILS # (AUTO) 16.6 10^3/uL (1.8-7.8); NEUTROPHILS % (AUTO) 86 % (42-75); PLATELET COUNT 306 10^3/uL (130-400); WHITE BLOOD COUNT 19.3 10^3/uL (4.3-11.0)
[2022-10-25 07:24] LABS: BAND NEUTROPHILS 0 %; BASOPHILS % (MANUAL) 0 %; EOSINOPHILS % (MANUAL) 0 %; LYMPHOCYTES % (MANUAL) 8 %; MONOCYTES % (MANUAL) 1 %; NEUTROPHILS % (MANUAL) 91 %; RBC MORPH NORMAL
[2022-10-25 07:35] VITALS: BP 106/64
[2022-10-25] MEDS: DOCUSATE SODIUM 100 MG (COLACE) CAP PO SCH ×2 (08:02→20:44)
--- NOTE | 2022-10-25 08:08 | Postpartum Progress Note ---
Note Note Day # 1 Subjective: Patient is without complaints. Ambulating, voiding. Tolerating a regular diet without nausea or vomiting. Normal lochia. Pain is well controlled with oral pain medications. Objective: Physical Exam: General - Alert and oriented, no apparent distress Abdomen - Soft, appropriately tender to palpation, non-distended, fundus firm at umbilicus Extremities - no edema, negative Shaista's bilaterally Incision- c/d/i Assessment: POD 1 PLTCS Acute blood loss anemia Plan: Routine care. Encourage breast feeding. Encourage ambulation. Ferrous sulfate supplementation. Plan for discharge tomorrow Vitals - Labs Vital Signs - I&O Vital Signs Date Time Temp Pulse Resp B/P (MAP) Pulse Ox O2 Delivery O2 Flow Rate FiO2 10/25/22 07:35 36.3 68 16 106/64 (78) 97 Room Air 10/25/22 03:53 36.1 74 16 109/55 (73) 96 Room Air 10/25/22 00:07 36.5 96 18 132/70 (90) 99 Room Air 10/24/22 23:21 36.6 13 113/63 (80) 97 Room Air 10/24/22 23:21 Room Air 10/24/22 23:02 37.0 16 122/72 (89) 97 Room Air 10/24/22 23:02 Room Air 10/24/22 22:52 37.0 23 115/75 (88) 97 Room Air 10/24/22 22:52 Room Air 10/24/22 22:37 37.0 21 117/73 (88) 96 Room Air 10/24/22 22:37 Room Air 10/24/22 22:22 Room Air 10/24/22 22:22 36.2 19 109/92 (98) 96 Room Air 10/24/22 21:18 112 130/80 (97) 99 Room Air 10/24/22 21:04 126 125/83 (97) 98 Room Air 10/24/22 20:49 137 166/84 (111) 97 Room Air 10/24/22 20:19 104 110/58 (75) 99 Room Air 10/24/22 20:03 37.4 107 20 111/67 (82) 99 Room Air 10/24/22 19:48 127 18 119/81 (94) 99 Room Air 7/18/23 19:32 37.3 112 18 109/81 (90) 98 Room Air 10/24/22 19:00 37.5 102 20 123/58 (79) 99 Room Air 10/24/22 18:45 106 20 132/69 (90) 100 Room Air 10/24/22 18:30 100 20 111/66 (81) 100 Room Air 10/24/22 18:15 107 20 114/54 (74) 100 Room Air 10/24/22 18:00 102 20 143/65 (91) 100 Room Air 10/24/22 17:45 118 20 110/63 (79) 100 Room Air 10/24/22 17:30 108 20 113/57 (75) 100 Room Air 10/24/22 17:15 109 20 120/59 (79) 100 Room Air 10/24/22 17:00 37.0 109 20 120/59 (79) 100 Room Air 10/24/22 16:45 124 20 144/99 (114) 100 Room Air 10/24/22 16:30 109 20 129/77 (94) 100 Room Air 10/24/22 16:15 101 20 130/73 (92) 100 Room Air 10/24/22 16:00 102 20 129/79 (96) 100 Room Air 10/24/22 15:45 116 20 128/70 (89) 99 Room Air 10/24/22 15:30 101 20 113/81 (92) 99 Room Air 10/24/22 15:15 93 20 112/78 (89) 98 Room Air 10/24/22 15:00 101 20 114/64 (81) 99 Room Air 10/24/22 14:45 108 20 117/70 (86) 98 Room Air 10/24/22 14:30 108 20 117/70 (86) 98 Room Air 10/24/22 14:15 100 20 117/69 (85) 98 Room Air 10/24/22 14:00 95 20 108/66 (80) 98 Room Air 10/24/22 13:45 36.4 98 20 119/72 (88) 96 Room Air 10/24/22 13:30 98 20 122/65 (84) 99 Room Air 10/24/22 13:15 98 20 112/75 (87) 98 Room Air 10/24/22 13:00 101 20 112/72 (85) 98 Room Air 10/24/22 12:45 107 20 113/69 (84) 98 Room Air 10/24/22 12:30 93 20 109/69 (82) 98 Room Air 10/24/22 12:15 105 20 101/71 (81) 100 Room Air 10/24/22 12:00 105 20 118/71 (87) 100 Room Air 10/24/22 11:59 97 20 106/72 (83) 100 Room Air 10/24/22 11:56 94 20 119/77 (91) 100 Room Air 10/24/22 11:53 105 20 135/61 (85) 100 Room Air 10/24/22 11:50 109 20 144/65 (91) 100 Room Air 10/24/22 11:45 103 20 120/79 (93) 99 Room Air 10/24/22 11:30 112 20 100 Room Air 10/24/22 11:15 98 20 145/86 (105) 99 Room Air 10/24/22 11:00 93 20 100 Room Air 10/24/22 10:45 100 20 131/91 (104) 100 Room Air 10/24/22 10:30 94 20 135/91 (106) 100 Room Air 10/24/22 10:15 105 20 135/61 (85) 100 Room Air 10/24/22 10:00 35.6 86 20 129/88 (102) 100 Room Air 10/24/22 09:45 81 20 139/73 (95) 100 Room Air 10/24/22 09:30 85 20 125/79 (94) 100 Room Air 10/24/22 09:15 92 20 120/76 (91) 100 Room Air 10/24/22 09:00 86 20 126/83 (97) 99 Room Air 10/24/22 08:45 97 20 116/80 (92) 100 Room Air 10/24/22 08:30 95 20 123/80 (94) 100 Room Air 10/24/22 08:15 36.6 92 20 126/79 (95) 100 Room Air I & O 10/25/22 07:00 Intake Total 5399 ml Output Total 1400 ml Balance 3999 ml Labs Laboratory Tests 10/25/22 06:40: White Blood Count 19.3H, Red Blood Count 3.36L, Hemoglobin 8.9L, Hematocrit 29L, Mean Corpuscular Volume 85, Mean Corpuscular Hemoglobin 27, Mean Corpuscular Hemoglobin Concent 31L, Red Cell Distribution Width 13.7, Platelet Count 306, Mean Platelet Volume 9.7, Immature Granulocyte % (Auto) 1, Neutrophils (%) (Auto) 86H, Lymphocytes (%) (Auto) 6L, Monocytes (%) (Auto) 7, Eosinophils (%) (Auto) 0, Basophils (%) (Auto) 0, Neutrophils # (Auto) 16.6H, Lymphocytes # (Auto) 1.2, Monocytes # (Auto) 1.3H, Eosinophils # (Auto) 0.0, Basophils # (Auto) 0.0, Immature Granulocyte # (Auto) 0.2H, Neutrophils % (Manual) 91, Lymphocytes % (Manual) 8, Monocytes % (Manual) 1, Eosinophils % (Manual) 0, Basophils % (Manual) 0, Band Neutrophils 0, Blood Morphology Comment NORMAL AIDE GALAVIZ DO Oct 25, 2022 08:08
[2022-10-25] MEDS: FERROUS SULF 325 MG (IRON) TAB PO SCH ×2 (10:13→18:09)
[2022-10-25 12:55] VITALS: BP 118/65
--- NOTE | 2022-10-25 15:02 | Anesthesia-Regional Post-Op ---
Regional Patient Condition Mental Status: Alert, Oriented x3 Circulation: Same as Pre-Op Headache: Absent Sensation: Full Recovery Motor Block: Absent Post Op Complications Complications None Follow Up Care/Instructions Patient Instructions None needed. Anesthesia/Patient Condition Patient was seen this morning and she was doing well, no complaints, stable vital signs, no apparent adverse anesthesia problems. No complications reported per nursing. ARTUR LAZCANO DO Oct 25, 2022 15:02
[2022-10-25 16:16] VITALS: BP 120/72
[2022-10-25 23:01] VITALS: BP 104/67
[2022-10-25] MEDS: IBUPROFEN 600 MG (MOTRIN) TAB PO SCH (23:01)
[2022-10-26 04:21] VITALS: BP 110/75
[2022-10-26] MEDS: HYDROcodone/APAP 5 MG/325 MG (LORTAB) TAB PO PRN (04:21)
[2022-10-26] MEDS: IBUPROFEN 600 MG (MOTRIN) TAB PO SCH ×2 (04:21→10:37)
--- NOTE | 2022-10-26 07:19 | Postpartum Progress Note ---
Note Note Day # 2 Subjective: Patient is without complaints. Ambulating, voiding. Tolerating a regular diet without nausea or vomiting. Normal lochia. Pain is well controlled with oral pain medications. Objective: Physical Exam: General - Alert and oriented, no apparent distress Abdomen - Soft, appropriately tender to palpation, non-distended, fundus firm at umbilicus Extremities - no edema, negative Shaista's bilaterally Incision- c/d/i Assessment: POD 2 PLTCS Acute blood loss anemia Plan: Routine care. Encourage breast feeding. Encourage ambulation. Ferrous sulfate supplementation. Plan for discharge today Vitals - Labs Vital Signs - I&O Vital Signs Date Time Temp Pulse Resp B/P (MAP) Pulse Ox O2 Delivery O2 Flow Rate FiO2 10/26/22 04:21 36.0 80 16 110/75 (87) 100 Room Air 10/25/22 23:01 36.0 98 16 104/67 (79) 98 Room Air 10/25/22 16:16 36.5 83 16 120/72 (88) 99 Room Air 10/25/22 12:55 36.3 86 16 118/65 (82) 98 Room Air 10/25/22 07:35 36.3 68 16 106/64 (78) 97 Room Air I & O 10/26/22 07:00 Intake Total 2400 ml Output Total 1400 ml Balance 1000 ml AIDE GALAVIZ DO Oct 26, 2022 07:19
[2022-10-26 09:15] VITALS: BP 113/68
[2022-10-26] MEDS: FERROUS SULF 325 MG (IRON) TAB PO SCH (09:20)
[2022-10-26] MEDS: DOCUSATE SODIUM 100 MG (COLACE) CAP PO SCH (09:21)
[2022-10-26 14:00] VITALS: BP 123/67
[2022-10-26 15:10] VITALS: BP 123/67
== END 2022-10-26 15:10 | disposition home or self-care (01) | DRG 787 ==
LOC: LDRP 06:00
PROVIDERS: ADMIT Obstetrics & Gynecology; ATTEND Obstetrics & Gynecology
PROC: 10907ZC Drainage of Amniotic Fluid, Therapeutic from Products of Conception, Via Natural or Artificial Opening (ICD-10-PCS; 2022-10-24)
PROC: 10D00Z1 Extraction of Products of Conception, Low, Open Approach (ICD-10-PCS; principal; 2022-10-24 21:26)
DX: O62.1 Secondary uterine inertia (principal); D62 Acute posthemorrhagic anemia; Z37.0 Single live birth; O61.0 Failed medical induction of labor; O90.81 Anemia of the puerperium; Z3A.39 39 weeks gestation of pregnancy; Z23 Encounter for immunization
CPT/HCPCS: 36415; 81000; 85007; 85025; 85027; 86780; 86850; 86900; 86901; 90707